=== PATIENT | male | born 1990 | race Caucasian/White ===

== ENCOUNTER 2022-07-01 01:21 | Emergency (ER) | payer OTHER ==
[2022-07-01] MEDS ORDERED: HYDROCODONE/ACETAMINOPHEN 5-325 MG TABLET PO ONE (02:30)
[2022-07-01] MEDS ORDERED: IBUPROFEN 100 MG/5 ML SUSPENSION UDCUP PO ONE (02:30)
== END 2022-07-01 04:32 | disposition home or self-care (01) ==
LOC: EMS 01:23
DX: S63.287A Dislocation of proximal interphalangeal joint of left little finger, initial encounter (principal); Z88.0 Allergy status to penicillin; X58.XXXA Exposure to other specified factors, initial encounter; Y93.89 Activity, other specified; Y92.89 Other specified places as the place of occurrence of the external cause; Y99.8 Other external cause status
CPT/HCPCS: 99283